=== PATIENT | male | born 2000 | race African-American/Black ===

== ENCOUNTER 2024-10-01 23:17 | Emergency (ER) | payer MEDICAID ==
[~2024-10-01] VITALS: Ht 167.6 cm; Wt 77.0 kg
[2024-10-01 23:27] VITALS: TEMP 36.8; O2SAT 98
[2024-10-02] MEDS ORDERED: CLOT15CR27 TP (00:50)
[2024-10-02 01:03] VITALS: BP 129/80; PULSE 83; RESP 16; O2SAT 100
== END 2024-10-02 01:11 | disposition home or self-care (01) ==
LOC: ER 23:17
DX: R21 Rash and other nonspecific skin eruption (principal); J45.909 Unspecified asthma, uncomplicated
CPT/HCPCS: 99282